=== PATIENT | female | born 1995 ===

== ENCOUNTER 2020-08-26 05:08 | Inpatient (IN) | payer OTHER ==
[2020-08-26 06:26] LABS: BASO % 0.3 % (0-2.0); EOS % 0.5 % (0-4.5); HEMATOCRIT 33.1 % (32.4-45.2); HEMOGLOBIN 11.4 GM/dL (10.7-15.3); MCH 31.3 pg (25.7-33.7); MCHC 34.5 g/dl (32.0-36.0); MEAN CELL VOLUME 90.7 fl (80-96); MEAN PLT VOLUME 8.8 fl (7.5-11.1); NEUT % 63.2 % (42.8-82.8); PLATELET COUNT 231 K/MM3 (134-434); RBC 3.65 M/mm3 (3.60-5.2); RDW 13.9 % (11.6-15.6); WHITE BLOOD COUNT 11.5 K/mm3 (4.0-10.0)
[2020-08-26 06:39] VITALS: BMI 28.9
[2020-08-26 06:42] LABS: INR 0.99 (0.83-1.09)
[2020-08-26 06:44] LABS: ACTIVATED PTT 24.8 SECONDS (25.2-36.5)
[2020-08-26 06:46] LABS: CALCIUM 8.9 mg/dL (8.5-10.1)
[2020-08-26 06:47] LABS: BLOOD UREA NITROGEN 8.5 mg/dL (7-18)
[2020-08-26 06:51] LABS: CREATININE 0.7 mg/dL (0.55-1.3)
[2020-08-26] MEDS ORDERED: ELECTROLYTE-148 SOLN 1,000 ML IV SCH ×2 (07:00→07:30)
[2020-08-26] MEDS ORDERED: FENTANYL/BUPIVACAINE/NS/PF - PCEA - 50 ML DISP.SYRIN EP ONE ×2 (07:55→11:25)
[2020-08-26] MEDS ORDERED: PCA PUMP NR ONE ×2 (07:55→11:25)
[2020-08-26] MEDS ORDERED: BUPIVACAINE HCL/PF 0.25% (2.5MG/ML) 10 ML VIAL ONE (08:01)
[2020-08-26] MEDS ORDERED: NALOXONE HCL 0.4 MG/ML VIAL IVPUSH PRN (08:34)
[2020-08-26] MEDS ORDERED: FENTANYL/BUPIVACAINE/NS/PF - PCEA - 50 ML DISP.SYRIN EP SCH (08:45)
[2020-08-26] MEDS ORDERED: OXYTOCIN 20 UNITS in 0.9% NS 20 UNIT/1,000 ML INFUS.BAG IV ONE (08:55)
[2020-08-26] MEDS ORDERED: OXYTOCIN 30 UNITS in 0.9% NS 30 UNIT/500 ML INFUS.BAG IVPB SCH (10:45)
[2020-08-26] MEDS ORDERED: BENZOCAINE 20% 57 GM BOTTLE TP PRN (15:06)
[2020-08-26] MEDS ORDERED: BENZOCAINE 28 GM HEMORRHOIDAL OINTMENT TP PRN (15:06)
[2020-08-26] MEDS ORDERED: ACETAMINOPHEN 325 MG TABLET (FP) PO PRN (15:06)
[2020-08-26] MEDS ORDERED: IBUPROFEN 600 MG TABLET (FP) PO PRN (15:06)
[2020-08-26] MEDS ORDERED: WITCH HAZEL 50% (TUCKS) 40 PAD/JAR PAD TP PRN (15:06)
[2020-08-26] MEDS ORDERED: BISACODYL 10 MG SUPP.RECT RC PRN (15:06)
[2020-08-26 15:08] LABS: CORD BASE EXCESS -6.6 mmol/L (0-2); CORD HCO3 23.2 mmHg (20-29); CORD PCO2 65.5 mmHg (30-78); CORD pH 7.168 (7.14-7.44)
[2020-08-26 15:14] LABS: CORD BASE EXCESS -6.4 mmol/L (0-2); CORD PCO2 48.3 mmHg (30-78); CORD pH 7.256 (7.14-7.44)
[2020-08-26] MEDS ORDERED: OXYTOCIN 20 UNITS in 0.9% NS 20 UNIT/1,000 ML INFUS.BAG IV SCH (15:15)
[2020-08-26 23:53] LABS: BASO % 0.9 % (0-2.0); EOS % 0.1 % (0-4.5); HEMOGLOBIN 10.9 GM/dL (10.7-15.3); LYMPH % 12.3 % (8-40); MCH 31.4 pg (25.7-33.7); MCHC 34.1 g/dl (32.0-36.0); MEAN CELL VOLUME 91.9 fl (80-96); MEAN PLT VOLUME 8.8 fl (7.5-11.1); MONO % 7.4 % (3.8-10.2); NEUT % 79.3 % (42.8-82.8); PLATELET COUNT 202 K/MM3 (134-434); RBC 3.48 M/mm3 (3.60-5.2); RDW 13.9 % (11.6-15.6); WHITE BLOOD COUNT 15.9 K/mm3 (4.0-10.0)
[2020-08-27] MEDS ORDERED: ceFAZolin 2 GRAM PREMIX BAG IVPB ONE (11:45)
[2020-08-27 19:50] LABS: BASO % 0.2 % (0-2.0); EOS % 0.4 % (0-4.5); HEMATOCRIT 32.8 % (32.4-45.2); HEMOGLOBIN 10.9 GM/dL (10.7-15.3); LYMPH % 20.1 % (8-40); MCH 30.9 pg (25.7-33.7); MCHC 33.2 g/dl (32.0-36.0); MEAN CELL VOLUME 93.2 fl (80-96); MEAN PLT VOLUME 8.8 fl (7.5-11.1); NEUT % 73.3 % (42.8-82.8); PLATELET COUNT 207 K/MM3 (134-434); RBC 3.52 M/mm3 (3.60-5.2); RDW 14.4 % (11.6-15.6); WHITE BLOOD COUNT 13.4 K/mm3 (4.0-10.0)
[2020-08-27] MEDS ORDERED: SENNOSIDES/DOCUSATE COMBO (SENNA PLUS) TABLET (UD) PO PRN (22:00)
[2020-08-28 10:41] VITALS: BP 128/78; PULSE 76; TEMP 98.6
[2020-08-28 12:17] LABS: POC NITRAZINE POS
== END 2020-08-28 12:00 | disposition home or self-care (01) | DRG 560 ==
LOC: JLDR 05:08 → J3W 16:51
PROVIDERS: ADMIT Student in an Organized Health Care Education/Training Program; ATTEND Student in an Organized Health Care Education/Training Program
PROC: 10E0XZZ Delivery of Products of Conception, External Approach (ICD-10-PCS; principal; 2020-08-26)
PROC: 0W8NXZZ Division of Female Perineum, External Approach (ICD-10-PCS; 2020-08-26)
PROC: 0KQM0ZZ Repair Perineum Muscle, Open Approach (ICD-10-PCS; 2020-08-26)
DX: O70.1 Second degree perineal laceration during delivery (principal); Z3A.38 38 weeks gestation of pregnancy; Z37.0 Single live birth
CPT/HCPCS: 36415; 36600; 59409; 76815-TC; 80048; 82803; 83986-QW; 85025; 85610; 85730; 86480; 86762; 86780; 86850; 86900; 86901; 87340; C9803; U0003; U0005